=== PATIENT | female | born 1960 ===

== ENCOUNTER 2020-08-09 19:19 | Inpatient (IN) | payer OTHER, SELFPAY ==
[2020-08-09 19:40] VITALS: BMI 34.8
[2020-08-09] MEDS ORDERED: Ondansetron ODT 4 MG TAB PO PRN (20:11)
[2020-08-09] MEDS ORDERED: Guaifenesin DM 100-10/5 ML UDCUP PO PRN (20:11)
[2020-08-09] MEDS ORDERED: Ondansetron PF 4 MG/2 ML Vial IVP PRN (20:11)
[2020-08-09] MEDS ORDERED: Benzonatate 100 MG CAP PO PRN (20:19)
[2020-08-09] MEDS ORDERED: Melatonin 3 MG TAB PO SCH (21:00)
[2020-08-09 22:33] LABS: Hemoglobin 5.8 g/dL (12.0-16.0)
[2020-08-10 00:14] LABS: INR-International Normal Ratio 1.1; PTT 28.9 sec (22.9-36.1); Prothrombin Time 14.5 sec (12.0-14.7)
[2020-08-10] MEDS: Acetaminophen 325 MG TAB PO PRN ×3 (01:11→13:04)
[2020-08-10 06:50] LABS: Hemoglobin 7.3 g/dL (12.0-16.0); Mean Corpuscular HGB CONC 31.2 g/dL (32.0-36.0); Mean Corpuscular Hemoglobin 22.7 pg (27.0-31.0); Mean Corpuscular Volume 72.6 fL (78.0-98.0); Mean Platelet Volume 8.4 fL (7.4-10.4); Platelet Count 282 thou/uL (130-400); RBC Distribution Width 20.2 % (11.5-14.5); White Blood Cell (WBC) Count 7.4 thou/uL (4.8-10.8)
[2020-08-10 06:54] LABS: Reticulocyte Count 1.8 % (0.5-1.5)
[2020-08-10 07:04] LABS: Iron 33 ug/dL (50-170); Iron Binding Capacity, Total 390 mcg/dL (265-497)
[2020-08-10 07:06] LABS: Anion Gap 12 mmol/L (10-20); BUN (Urea Nitrogen) 8 mg/dL (9.8-20.1); Calc. Creatinine Clearance 120 mL/min (70-130); Calcium 7.7 mg/dL (7.8-10.44); Carbon Dioxide 19 mmol/L (23-31); Chloride 110 mmol/L (98-107); Glucose 81 mg/dL (80-115); Iron 32 ug/dL (50-170); Iron Binding Capacity, Total 386 mcg/dL (265-497); Potassium 3.4 mmol/L (3.5-5.1); Sodium 138 mmol/L (136-145)
[2020-08-10 07:31] LABS: #Eosinphils 0.2 thou/uL (0.0-0.7); #Lymphocytes 1.2 thou/uL (1.20-3.40); #Monocytes 0.4 thou/uL (0.11-0.59); #Neutrophils 5.6 thou/uL (1.40-6.50); %Basophils 0.5 % (0.0-1.0); %Eosinophils 2.7 % (0.0-10.0); %Monocytes 5.7 % (0.0-10.0); %Neutrophils 75.1 % (42.0-75.0); Ferritin 5.57 ng/mL (10-291); Hypochromia MODERATE=16-30 cells (100X) (0-5/hpf); MDiff Complete? YES; Microcytosis MODERATE=15-30 cells (100X) (0-5/hpf); Reflex for Review?? YES
[2020-08-10] MEDS ORDERED: Cholecalciferol 1,000 UNITS (25 MCG) TAB PO SCH (09:00)
[2020-08-10] MEDS ORDERED: Ascorbic Acid 500 mg Chewable Tablet PO SCH (09:00)
[2020-08-10] MEDS ORDERED: Zinc Sulfate 220 MG CAP PO SCH (09:00)
[2020-08-10] MEDS ORDERED: Cyanocobalamin 1000 MCG/ML VIAL IM SCH (09:45)
[2020-08-10] MEDS ORDERED: Ferrous Sulfate 325 MG TAB PO SCH ×2 (10:00→17:00)
[2020-08-10 17:55] VITALS: BP 138/67; TEMP 98.9
== END 2020-08-10 18:15 | disposition home or self-care (01) | DRG 179 ==
LOC: 2SW 19:21
PROVIDERS: ADMIT Internal Medicine; ATTEND Internal Medicine
PROC: 30233N1 Transfusion of Nonautologous Red Blood Cells into Peripheral Vein, Percutaneous Approach (ICD-10-PCS; principal; 2020-08-10)
DX: U07.1 COVID-19 (principal); J45.909 Unspecified asthma, uncomplicated; I44.0 Atrioventricular block, first degree; K21.9 Gastro-esophageal reflux disease without esophagitis; K44.9 Diaphragmatic hernia without obstruction or gangrene; D51.9 Vitamin B12 deficiency anemia, unspecified; R82.71 Bacteriuria; Z79.899 Other long term (current) drug therapy
CPT/HCPCS: 36415; 36430; 80048; 82607; 82728; 82746; 83540; 83550; 85025; 85046; 85060; 85379; 85610; 85730; 86140; 86850; 86900; 86901; J2405; J3420; P9016